=== PATIENT | male | born 1935 | race American Indian/Alaskan Native ===

== ENCOUNTER 2018-02-16 12:08 | Outpatient (CLI) | payer MEDICARE, OTHER ==
[2018-02-16 12:56] LABS: Blood Urea Nitrogen 11 mg/dL (9-20)
--- NOTE | 2018-02-16 18:22 | Event Note ---
Date: 02/16/18 83 year old male with new DVT and new chest pain sent from [facility] to the hospital. 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 He still has intermittent chest pain and has a history of MO. I recommended that he goes to the ER for his intermittent chest pain, but he declined. He understands the risks of morbidity and mortality.
--- NOTE | 2018-02-16 18:50 | Cat Scan Report ---
FINAL REPORT EXAM: CT ANGIO CHEST HISTORY: POSITIVE DVT TO RT LEG,SOB AND CHEST PAIN TECHNIQUE: CT chest CT angiogram with reconstructions PRIORS: None. FINDINGS: There is no evidence of filling defect within the central pulmonary vasculature to suggest the presence of acute pulmonary embolus. No evidence of mediastinal pathologic lymph node enlargement Heart and great vessels are unremarkable. The aorta is normal in caliber. There is some pleural based scarring at the right lung base as well as apical pleural scarring more right. There is mild bronchiectasis in the lower lobes. No pleural fluid collection seen. No acute pulmonary abnormality noted. Visualized portion of the upper abdomen demonstrates no acute change. There are 2 cysts noted at the lower pole left kidney largest measuring 1.5 centimeters IMPRESSION: Mild bronchiectasis with scarring in the lower lobes. No CT evidence for acute pulmonary embolus
== END 2018-02-16 12:09 | disposition home or self-care (01) ==
LOC: CT 12:08
PROVIDERS: ATTEND Radiology Diagnostic Radiology
DX: I82.4Z3 Acute embolism and thrombosis of unspecified deep veins of distal lower extremity, bilateral (principal); I87.093 Postthrombotic syndrome with other complications of bilateral lower extremity; I87.1 Compression of vein; I87.2 Venous insufficiency (chronic) (peripheral); J98.4 Other disorders of lung; J47.9 Bronchiectasis, uncomplicated; N28.1 Cyst of kidney, acquired; I10 Essential (primary) hypertension; Z86.711 Personal history of pulmonary embolism
CPT/HCPCS: 36415; 71275; 82565; 84520; Q9967

== ENCOUNTER 2018-02-22 08:28 | Day surgery (SDC) | payer MEDICARE, OTHER ==
[~2018-02-22 08:28] MED LIST: ANCEF/STERILE WATER 2 GM/20 ML 2 GM/20 ML SYRINGE IV NR; NACL 0.9% 1000 ML 1,000 ML IV SCH
[2018-02-22 10:57] LABS: Basophils % (Auto) 1.1 % (0.0-1.8); Eosinophils # (Auto) 0.1 K/mm3 (0.0-0.4); Hematocrit 39.9 % (35.5-45.6); Hemoglobin 13.7 gm/dl (11.8-15.2); Lymphocytes # (Auto) 1.1 K/mm3 (1.2-5.4); Mean Corpuscular HGB Conc 34 % (32-34); Mean Corpuscular Hemoglobin 32 pg (28-32); Mean Corpuscular Volume 94 fl (84-94); Monocytes # (Auto) 0.5 K/mm3 (0.0-0.8); Monocytes % (Auto) 11.4 % (0.0-7.3); Platelet Count 197 K/mm3 (140-440); Red Blood Count 4.22 M/mm3 (3.65-5.03); Red Cell Distribution Width 13.6 % (13.2-15.2)
[2018-02-22 11:00] LABS: INR 1.72 (0.87-1.13)
[2018-02-22 11:01] LABS: Partial Thromboplastin Time 46.8 Sec. (24.2-36.6)
[2018-02-22 11:13] LABS: BUN/Creatinine Ratio 19; Blood Urea Nitrogen 17 mg/dL (9-20); Calcium 9.3 mg/dL (8.4-10.2); Hemolysis Index 27
[2018-02-22] MEDS ORDERED: HEPARIN 10,000 UNITS/10 ML ONE (12:14)
[2018-02-22] MEDS ORDERED: HEPARIN/NS 5000 UNIT/500ML(CATH LAB) 1,000 ML IR ONE (12:14)
[2018-02-22] MEDS ORDERED: ANCEF/STERILE WATER 2 GM/20 ML 2 GM/20 ML SYRINGE IV ONE (12:15)
[2018-02-22] MEDS ORDERED: XYLOCAINE 2% INFILTRATI ONE (12:15)
[2018-02-22] MEDS ORDERED: SUBLIMAZE ONE (12:15)
[2018-02-22] MEDS ORDERED: VERSED ONE (12:15)
--- NOTE | 2018-02-22 13:20 | Short Stay Summary ---
Short Stay Documentation Date of service: 02/22/18 - History Principal diagnosis: Right iliofemoral DVT H&P: obtained from office - Allergies and Medications Current Medications: Allergies No Known Allergies Allergy (Verified 04/30/16 10:21) Home Medications Medication Instructions Recorded Confirmed Last Taken Type Apixaban [Eliquis] 5 mg PO BID 04/30/16 02/22/18 02/22/18 06:30 History AtorvaSTATin [Lipitor] 80 mg PO HS 04/30/16 02/22/18 02/21/18 History Carvedilol 12.5 mg PO BID 04/30/16 02/22/18 02/21/18 History HYDROcodone/APAP 7.5-325 [[place] 1 each PO Q6HR PRN #30 tablet 04/30/16 02/22/18 06/24/16 Rx 7.5/325] Lisinopril 40 mg PO DAILY 04/30/16 02/22/18 02/21/18 History Loratadine 10 mg PO DAILY 04/30/16 02/22/18 02/21/18 History Ondansetron [Zofran Odt] 4 mg PO Q6HR PRN #30 tab.rapdis 04/30/16 06/25/1606/24 Rx Potassium Chloride [Klor-Con M10] 10 meq PO DAILY 04/30/16 02/22/18 02/21/18 History Active Medications Cefazolin Sodium (Ancef/Sterile Water 2 Gm/20 Ml) 2 gm in 20 mls @ 80 mls/hr IV PREOP NR; Protocol Stop: 02/22/18 23:59 Last Admin: 02/22/18 12:30 Dose: 20 mls Sodium Chloride (Nacl 0.9% 1000 Ml) 1,000 mls @ 42 mls/hr IV DIRECT CHARLENE - Brief post op/procedure progress note Date of procedure: 02/22/18 Pre-op diagnosis: Right iliofemoral DVT Post-op diagnosis: same Procedure: RLE thrombectomy and venoplasty Anesthesia: local Surgeon: JANET BARBER Estimated blood loss: minimal Pathology: none Condition: stable - Disposition Condition at discharge: Good Disposition: [id number] TO HOME OR SELFCARE Short Stay Discharge Plan Activity: advance as tolerated Diet: regular Wound: keep clean and dry, per your surgeon's advice Follow up with: JAYLA MAE MD [Primary Care Provider] - 7 Days
--- NOTE | 2018-02-22 13:24 | Operative Report ---
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 The patient was brought to the angiographic suite and placed in supine position on the examination table. Initial ultrasound evaluation of the leg demonstrated a thrombosed right femoral vein and acute thrombus in the right common femoral vein. A small area of nonthrombosed vein lies between and is supplied by the deep femoral vein. An appropriate exit site was chosen and the patient was prepped and draped in the usual sterile fashion. 1% lidocaine was used for anesthesia. A 7 cm 18- gauge needle was advanced to the common femoral vein and a 0.035 guidewire advanced centrally through the stents. The needle was removed and initially a micro-sheath placed. Contrast was injected through the micro-sheath to document appropriate intravenous positioning and a puncture site below the previously placed stents. A 0.035 guidewire was readvanced and a 5 Zimbabwean sheath placed. A 5 Zimbabwean vertebral catheter was advanced over the guidewire and together the guidewire and catheter advanced to the IVC. IVC is patent. Previously placed filter is identified. Stents are identified within the right common iliac, external iliac and common femoral veins. Following heparinization, thrombus maceration was performed using a 10 mm balloon throughout the entire length of the common iliac vein, external iliac vein and common femoral vein. Aspiration thrombectomy was then performed using an 8 [place]an MPA guide cath. Multiple passes were used throughout the vein. Post aspiration thrombectomy, additional venoplasty was performed using a 12 mm balloon. Post intervention angiography demonstrated a patent flow throughout the previously occluded common iliac vein, external iliac vein and common femoral vein. The sheath was removed and hemostasis achieved using manual compression. A sterile dressing was then placed. A compression dressing was also placed. The patient tolerated the procedure well. There were no immediate post procedure complications. Conscious sedation was performed under the guidance of radiologic nursing. Continuous cardiopulmonary monitoring was utilized. IMPRESSION: 1) Right lower extremity venogram demonstrating acute and chronic thrombus within the right common iliac vein, external iliac vein and common femoral vein. 2) Mechanical thrombectomy of the right common iliac vein, external iliac vein and common femoral vein
[2018-02-22 14:21] VITALS: BP 102/72
== END 2018-02-22 15:30 | disposition home or self-care (01) ==
LOC: CATHLABREC 08:28
PROVIDERS: ATTEND Radiology Diagnostic Radiology
DX: I82.521 Chronic embolism and thrombosis of right iliac vein (principal); I82.421 Acute embolism and thrombosis of right iliac vein; I10 Essential (primary) hypertension; E78.00 Pure hypercholesterolemia, unspecified; I25.10 Atherosclerotic heart disease of native coronary artery without angina pectoris; I87.2 Venous insufficiency (chronic) (peripheral); F17.210 Nicotine dependence, cigarettes, uncomplicated; Z79.01 Long term (current) use of anticoagulants; Z79.899 Other long term (current) drug therapy; Z86.73 Personal history of transient ischemic attack (TIA), and cerebral infarction without residual deficits; Z80.9 Family history of malignant neoplasm, unspecified; Z86.711 Personal history of pulmonary embolism
CPT/HCPCS: 36415; 37187; 76937; 80048; 85025; 85384; 85610; 85730; 86850; 86900; 86901; 99152; 99153; C1725; C1769; C1887; J0690; J1644; J2250; J3010; J7030; Q9967

== ENCOUNTER 2020-03-17 12:11 | Outpatient (CLI) | payer MEDICARE, OTHER ==
[2020-03-17 13:20] LABS: Blood Urea Nitrogen 14 mg/dL (9-20)
--- NOTE | 2020-03-17 16:47 | Cat Scan Report ---
CTA ABDOMEN, PELVIS, AND LOWER EXTREMITIES WITH CONTRAST INDICATION: EMBOLISM AND THROMBOSIS OF UNSPECIFIED ARTERY. TECHNIQUE: Axial CT images were obtained through the abdomen, pelvis and lower extremities after injection of 10 0 cc Omnipaque 300 IV contrast. 3 plane MIP reconstructions were produced. All CT scans at this [facility] are performed using CT dose reduction for ALARA by means of automated exposure control. COMPARISON: None available. FINDINGS: CTA ABDOMEN: Abdominal Aorta: No significant abnormality. Celiac Artery: Patent with a focal dissection seen beginning approximately 1.5 cm from the vessel pascual gin and extending to the bifurcation of the celiac trunk into the common hepatic and splenic arteries . No additional significant abnormality. Superior Mesenteric Artery: No significant abnormality. Right Renal Artery: No significant abnormality. Left Renal Artery: No significant abnormality. Inferior Mesenteric Artery: No significant abnormality. 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 [id number] nonobstructive atherosclerosis is seen throughout the right common iliac artery. - Internal Iliac Artery: Patent with mild to moderate generalized atherosclerosis with secondary mild obstruction. - External Iliac Artery: Patent with generalized mild nonobstructive atherosclerosis. LEFT: - Common Iliac Artery: Patent with generalized mild nonobstructive atherosclerosis. Just above the bi furcation, the vessel is mildly dilated and measures 1.8 cm in transverse dimension. - Internal Iliac Artery: Mildly dilated near its origin, measuring 2.2 x 1.7 cm. Generalized mild ath erosclerosis is present throughout with secondary mild obstruction. - External Iliac Artery: No significant abnormality. CTA LOWER EXTREMITIES: RIGHT LOWER EXTREMITY: - Common Femoral Artery: Patent with generalized nonobstructive atherosclerosis and dilated compared to the left [employer], measuring 2.6 x 2.1 cm on image 328 of series 2 without additional significant abnor mality. - Superficial Femoral Artery: Patent with mild to moderate generalized nonobstructive atherosclerosis . - Profunda Femoral Artery: No significant abnormality. - Popliteal Artery: No significant abnormality. - Anterior Tibial Artery: Occluded at its origin without distal reconstitution of flow. - Tibioperoneal Trunk: No significant abnormality. - Posterior Tibial Artery: Occluded for most of its course with reconstitution of flow at the level o f the ankle. - Peroneal Artery: Occluded for most of its course with reconstitution of flow at the level of the an kle. LEFT LOWER EXTREMITY: - Common Femoral Artery: Patent and normal in caliber with mild nonobstructive atherosclerosis. - Superficial Femoral Artery: Occluded at its origin without distal reconstitution of flow. - Profunda Femoral Artery: No significant abnormality. - Popliteal Artery: Occluded. - Anterior Tibial Artery: Occluded. - Tibioperoneal Trunk: Occluded. - Posterior Tibial Artery: Occluded. - Peroneal Artery: Occluded. NONTARGET STRUCTURES: CHEST: No significant abnormality. ABDOMEN:No significant abnormality. PELVIS:No significant abnormality. LOWER EXTREMITIES:No significant abnormality. SKELETAL: No acute abnormality. Degenerative changes are seen along the spine and pelvis. ADDITIONAL FINDINGS: Multiple small caliber collateral vessels are seen along the legs, more notable on the right than the left. There has been prior stenting of the common iliac and right external meghan c veins. IMPRESSION: 1. 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 Please correlate with the clinical f indings and the patient's history. 2. 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 3. Extensive iliac atherosclerosis as detailed above. 4. Occlusion of the anterior tibial, posterior tibial and peroneal arteries with collateral supply to the ankle/foot. 5. 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 6. Additional findings as above. Signer Name: Ernesto Rudolph MD Signed: 03/17/2020 4:43 PM Workstation Name: [id number]
== END 2020-03-17 12:12 | disposition home or self-care (01) ==
LOC: CT 12:11
PROVIDERS: ATTEND Radiology Diagnostic Radiology
DX: I72.3 Aneurysm of iliac artery (principal); I74.9 Embolism and thrombosis of unspecified artery; I70.8 Atherosclerosis of other arteries; I77.1 Stricture of artery
CPT/HCPCS: 36415; 75635; 82565; 84520; Q9967